=== PATIENT | female | born 1955 | race Caucasian/White ===

== ENCOUNTER 2018-04-28 06:47 | Inpatient (IN) | payer OTHER ==
[~2018-04-28] VITALS: Ht 165.1 cm; Wt 69.9 kg
--- NOTE | 2018-04-28 06:59 | ED SYNCOPE COMPLAINT ---
History of Present Illness General Chief Complaint: Syncope and Near-Syncope Stated Complaint: DIZZINESS/?SYNCOPAL (FROM OR) Source: patient Exam Limitations: no limitations Vital Signs & Intake/Output Vital Signs & Intake/Output Vital Signs Date Time Temp Pulse Resp B/P B/P Pulse O2 O2 Flow FiO2 Mean Ox Delivery Rate 04/28 0648 97.6 62 17 129/76 97 Room Air Allergies Coded Allergies: oxycodone (internal itch 05/24/17) Triage Note: PATIENT ARRIVES FROM THE OR WITH COMPLAINT OF ?SYNCOPAL EPISODE THIS AM AND NEAR-SYNCOPE IN THE OR WHILE HAVING COFFEE. PATIENT ARRIVES ALERT, ORIENTED, SPEECH CLEAR, DENIES CP/SOB. PATIENT STATES "THIS MORNING I HAD A WAVE OF FEELING HOT AND THE NEXT THING I KNEW THERE WAS COFFEE ALL OVER THE TABLE". AT BEDSIDE FOR EVAL. Triage Nurses Notes Reviewed? yes Timing: multiple episodes today Precipitating Factors: none Context: became dizzy/fainted Episode Description: SEE BELOW Loss of Consciousness: brief (seconds) Associated Symptoms: "FELT WARM" HPI: 62-year-old woman in prior good health under a medically supervised weight loss program, presents after 2 episodes of syncope. She states that this morning, she was at her breakfast table drinking coffee and reading when suddenly she felt a warm negrete through her body. She spilled her coffee and a workup dazed a few moments later. She collected herself. She went to work. While she was with her colleagues sitting, she suddenly became lightheaded. Her colic stated that, "she became pale all over." She did not lose consciousness the second moment, but felt like she might. She describes very mild palpitations, but no shortness of breath chest pain headache focal weakness. She states that she has been eating and drinking normally without increased dietary stimulants. She has a protein shake each morning. She is otherwise well. (Ramesh RODRIGUEZ,Shiraz Sheehan) Reconcile Medications Calcium Carbonate/Vitamin D3 (Os-Sean 500+D3 Caplet) 500 MG-200 TABLET 1 TAB PO DAILY VITAMIN SUPPORT (Reported) Multivitamin (Daily Value) 1 EACH TABLET 1 TAB PO DAILY VITAMIN SUPPORT ( Reported) (Sylvester Arguello DO) Past History Travel History Traveled to [place] past 21 day No Medical History Any Pertinent Medical History? see below for history Neurological: NONE EENT: NONE Cardiovascular: pleurisy Respiratory: NONE Gastrointestinal: NONE Hepatic: NONE Renal: NONE Musculoskeletal: NONE Psychiatric: NONE Endocrine: NONE Blood Disorders: NONE Cancer(s): NONE SALES CLERK SUPERVISOR/Reproductive: NONE Tetanus Vaccine: 08/19/12 Surgical History Surgical History: meniscus repair Psychosocial History What is your primary language Setswana Family History Hx Contributory? No (Shiraz Chandler MD) Medical History Any Pertinent Medical History? none Surgical History Surgical History: non-contributory Family History Hx Contributory? No (Sylvester Arguello DO) Review of Systems Review of Systems Constitutional: Denies: see HPI. (Shiraz Chandler MD) Review of Systems Constitutional: Reports: see HPI. EENTM: Reports: no symptoms. Respiratory: Reports: no symptoms. Cardiovascular: Reports: see HPI, palpitations, syncope. Denies: chest pain. GI: Reports: no symptoms. Genitourinary: Reports: no symptoms. Musculoskeletal: Reports: no symptoms. Skin: Reports: no symptoms. Neurological/Psychological: Reports: no symptoms. All Other Systems: Reviewed and Negative (Sylvester Arguello DO) Physical Exam Physical Exam Cranial Nerves: normal hearing, normal speech, PERRL Comments: Review of Systems - except as otherwise noted in HPI Review of Systems Constitutional:no symptoms. EENTM:no symptoms. Respiratory:no symptoms. Cardiovascular:no symptoms. GI:no symptoms. Genitourinary:no symptoms. Musculoskeletal:no symptoms. Skin:no symptoms. Neurological/Psychological:no symptoms. Hematologic/Endocrine:no symptoms. Immunologic/Allergic:no symptoms. All Other Systems: Reviewed and Negative Physical Exam Physical Exam General Appearance: well developed/nourished, no apparent distress Head: atraumatic, normal appearance Eyes: Bilateral: normal appearance. Ears, Nose, Throat: normal pharynx, normal ENT inspection Neck: normal inspection, supple, full range of motion Respiratory: normal breath sounds, chest non-tender, no respiratory distress, quiet respiration, lungs clear Cardiovascular: regular rate/rhythm Gastrointestinal: normal bowel sounds, soft, non-tender, no organomegaly Back: normal inspection, normal range of motion Extremities: normal inspection, normal capillary refill, normal range of motion, no edema Neurologic/Psych: no motor/sensory deficits, awake, alert, oriented x 3 Skin: intact, normal color, warm/dry Core Measures ACS in differential dx? No CVA/TIA Diagnosis: No Sepsis Present: No Sepsis Focused Exam Completed? No (Shiraz Chandler MD) Physical Exam Cranial Nerves: normal hearing, normal speech, PERRL Core Measures ACS in differential dx? Yes CVA/TIA Diagnosis: Yes NIH Stroke Scale NIH Stroke Scale Response Value Level of Consciousness alert 0 LOC Questions answers both correctly 0 LOC Commands obeys both correctly 0 Best Gaze normal 0 Visual [place] no visual loss 0 Facial Paresis normal 0 Motor Arm - Left no drift 0 Motor Arm - Right no drift 0 Motor Leg - Left no drift 0 Motor Leg - Right no drift 0 Limb Ataxia no ataxia 0 Sensory normal 0 Best Language no aphasia 0 Dysarthria normal articulation 0 Extinction and Inattention no neglect 0 Total 0 Sepsis Present: No Sepsis Focused Exam Completed? No (Sylvester Arguello DO) Progress Differential Diagnosis: vasovagal episode vs orthostatics vs other. Plan of Care: labs/ekg... pt signed out to dr. arguello at 7am, Hand-Off Endorsed To: Sylvester Arguello DO Endorsed Time: 0700 Pending: EKG, labs, Xray (Ramesh RODRIGUEZ,Shiraz Sheehan) Differential Diagnosis: AMI, orthostatic syncope, pericardial tamponade, pulmonary embolus, sick sinus syndrome, TIA/CVA, vasodepressor syncope, ventricular tach/fib, vasovagal episode vs orthostatics vs other. Initial ED EKG: NSR, rhythm, rate, no ST T wave changes Comments: Dr. Chandler placed orders for the patient prior to shift change for advanced triage. Laboratory studies, chest x-ray, and ECG are as documented. However, during my encounter with the patient while interviewing her she experienced another episode, and her heart rate correspondingly dropped to 35. This was self-limited and resolved spontaneously, with corresponding resolution of her symptoms. Diagnosis of symptomatic bradycardia was made and the patient was hospitalized with cardiology involvement for definitive workup and intervention. CXR FINDINGS: Cardiac leads overlie the chest. There is no focal consolidative disease, pleural effusion, or pneumothorax. The cardiac silhouette and upper mediastinal contours are normal. No acute osseous finding. IMPRESSION: Unremarkable chest radiograph. No consolidative disease or effusion. (Sylvester Arguello DO) Departure Departure Disposition: STILL A PATIENT Condition: Stable Referrals: Adalberto RODRIGUEZ,Brisa (PCP/Family) Departure Forms: Customer Survey General Discharge Information (Ramesh RODRIGUEZ,Shiraz Sheehan) Departure Time of Disposition: 757 Clinical Impression Primary Impression: Symptomatic sinus bradycardia Secondary Impressions: Syncope Qualifiers: Syncope type: unspecified Qualified Code: R55 - Syncope and collapse Admission Note Spoke With: Robina RODRIGUEZ,Alley Pabon Documentation of Exam: Documentation of any treatments & extenuating circumstances including Concerns Regarding Discharge (functional status, medication knowledge or non-compliance, living conditions, etc.) that warrant an admission rather than observation: Patient presents with syncope and was witnessed by me personally to have had a significant bradycardic episode into the mid 30s with corresponding symptomatology. This may warrant an unstable cardiac dysrhythmia and could be life-threatening thus I feel that hospitalization for definitive management with cardiology is warranted. Hemodynamically stable for the remainder of the ED course. (Sylvester Arguello DO) Critical Care Note Critical Care Note Critical Care Time: 30-74 min Comments: Critical care time spent > 30 inutes. The patient was suffering from a critical illness that acutely impairs one or more vital organ systems and there is a high probability of imminent or life threatening deterioration in the patient's condition. During this time I was personally involved in activities including monitoring for dysrhythmias, consulting multiple specialists, and decision making of high complexity to assess, manipulate, and support vital organ system failure (in this case, symptomatic bradycardia, or to prevent further life threatening deterioration of the patient's condition. The failure to initiate these interventions on an urgent basis would likely result in sudden, clinically significant or life threatening deterioration in the patient's condition. (Sylvester Arguello DO)
[2018-04-28 07:18] LABS: ABSOLUTE BASOPHIL COUNT 0 /CUMM (0.0-0.2); ABSOLUTE EOSINOPHIL COUNT 0.1 /CUMM (0.0-0.7); ABSOLUTE GRANULOCYTE CT 2.8 /CUMM (1.4-6.5); ABSOLUTE LYMPH COUNT 0.8 /CUMM (1.2-3.4); ABSOLUTE MONOCYTE COUNT 0.3 /CUMM (0.10-0.60); BASOPHIL % 0.8 % (0.0-2.0); EOSINOPHIL % 1.4 % (0-5); HEMATOCRIT 40.2 % (37-47); MEAN CORPUSCULAR HGB 31.1 PG (27.0-31.0); MEAN CORPUSCULAR HGB CONC 33.7 G/DL (33.0-37.0); MEAN CORPUSCULAR VOLUME 92.2 FL (81.0-99.0); MEAN PLATELET VOLUME 10.1 FL (7.4-10.4); PLATELET COUNT 186 /CUMM (130-400); RBC DISTRIBUTION WIDTH 13.3 % (11.5-14.5); RED BLOOD CELL CT 4.36 /CUMM (4.20-5.40); WHITE BLOOD CELL COUNT 4.1 /CUMM (4.8-10.8)
--- NOTE | 2018-04-28 07:43 | RADIOLOGY REPORT ---
EXAMINATION: XR PORTABLE CHEST CLINICAL INFORMATION: Chest pain. COMPARISON: Chest radiograph 05/01/2016. TECHNIQUE: Portable frontal view of the chest was obtained. FINDINGS: Cardiac leads overlie the chest. There is no focal consolidative disease, pleural effusion, or pneumothorax. The cardiac silhouette and upper mediastinal contours are normal. No acute osseous finding. IMPRESSION: Unremarkable chest radiograph. No consolidative disease or effusion.
[2018-04-28] MEDS ORDERED: DAILY VALUE1 EACH PO (08:45)
[2018-04-28] MEDS ORDERED: OS-CAL 500+D31 EAC1 PO (08:46)
[2018-04-28 11:19] VITALS: BP 108/76
--- NOTE | 2018-04-28 11:33 | Cons- Cardiology ---
Abdirahman Pruitt MD 04/28/18 1133: General Information and HPI Consulting Request Date of Consult: 04/28/18 Requested By: Joanie Law MD Reason for Consult: Syncope, bradycardia History of Present Illness: The patient is a 62-year-old female with no cardiac history who is admitted after several recent episodes of syncope/presyncope. She was sitting at her kitchen table at home this morning when she developed a sensation of warmth and dizziness. She is unsure whether she lost consciousness, however she spilled her coffee. 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 She presented to the emergency room. In the emergency department she was noted to have the sensation of warmth and presyncope with associated brief episode of bradycardia with heart rate of 35. She does not have any significant cardiac history. She had palpitations years ago which have not recurred. She has recently been participating in the [facility] program. She is taking a weight loss supplement, however she is unsure of the ingredients. No chest pain. No recent palpitations. No orthopnea. No shortness of breath. She was recently diagnosed with thyroid nodules. Workup showed that her thyroid appeared to be functioning normally Allergies/Medications Allergies: Coded Allergies: oxycodone (internal itch 05/24/17) Home Med List: Calcium Carbonate/Vitamin D3 (Os-Sean 500+D3 Caplet) 500 MG-200 TABLET 1 TAB PO DAILY VITAMIN SUPPORT (Reported) Multivitamin (Daily Value) 1 EACH TABLET 1 TAB PO DAILY VITAMIN SUPPORT ( Reported) Current Medications: Current Medications Sig/Dashawn Start time Last Medication Dose Route Stop Time Status Admin Acetaminophen 650 MG Q8P PRN 04/28 1045 AC PO Acetaminophen 325 MG Q6P PRN 04/28 1045 AC PO Atropine Sulfate 0.5 MG ONCE PRN 04/28 1045 AC IV Ondansetron HCl 0 .STK-MED ONE 04/28 821 DC .ROUTE Ondansetron HCl 4 MG ONCE ONE 04/28 0815 DC / IV 04/28 0816 0821 Sodium Chloride 1,000 ML BOLUS ONE 04/28 0815 DC / IV 04/28 0914 0821 Sodium Chloride 1,000 ML BOLUS ONE 04/28 0715 DC / IV 04/28 0814 0712 Review of Systems Review of Systems: No fever. No chills. No melena. No hemoptysis. No cough. All other systems were reviewed, and were noted to be negative. 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 Home Smoking Status: Never Smoked ETOH Use: denies use Illicit Drug Use: denies illicit drug use Exam & Diagnostic Data Vital Signs and I&O Vital Signs Date Time Temp Pulse Resp B/P B/P Pulse O2 O2 Flow FiO2 Mean Ox Delivery Rate 04/28 1119 99.1 62 18 108/76 96 Room Air 04/28 0947 97.8 70 18 111/57 04/28 0648 97.6 62 17 129/76 97 Room Air Intake & Output 04/28 1600 04/28 0800 04/28 0000 04/27 1600 04/27 0800 04/27 0000 Intake Total 2000 Output Total Balance 2000 Intake, IV 2000 Patient 144 lb 144 lb Weight Weight Reported by Patient Measurement Method Physical Exam: Gen: The patient is in no acute distress HEENT: Normal nose, ears, and oropharynx. Pupils equal bilaterally. Conjunctiva normal. Neck: Supple with no JVD, no masses, and no thyromegaly Lungs: Clear to auscultation with normal respiratory effort Heart: RRR, S1, S2, no murmurs. No peripheral edema, 2+ pulses in the lower extremities bilaterally Abdomen: Soft, nontender, no masses. No hepatomegaly. No splenomegaly Extremities: No clubbing or cyanosis. Normal muscle strength in the upper and lower extremities Skin: Normal skin turgor with no skin ulcers or lesions noted. Neuro: Cranial nerves intact. Sensation intact Psych: Alert and oriented x 3 with appropriate affect Labs/Magdi Results: Laboratory Tests 04/28 0706 Chemistry Sodium (137 - 145 mmol/L) 142 Potassium (3.5 - 5.1 mmol/L) 4.1 Chloride (98 - 107 mmol/L) 102 Carbon Dioxide (22 - 30 mmol/L) 32 H Anion Gap (5 - 16) 8 BUN (7 - 17 mg/dL) 31 H Creatinine (0.5 - 1.0 mg/dL) 0.8 Estimated GFR (>60 ml/min) > 60 BUN/Creatinine Ratio (7 - 25 %) 38.8 H Glucose (65 - 99 mg/dL) 113 H Calcium (8.4 - 10.2 mg/dL) 9.8 Total Bilirubin (0.2 - 1.3 mg/dL) 0.3 Direct Bilirubin (< 0.4 mg/dL) 0 AST (14 - 36 U/L) 26 ALT (9 - 52 U/L) 35 Alkaline Phosphatase (<127 U/L) 83 Troponin I (< 0.11 ng/ml) < 0.01 Total Protein (6.3 - 8.2 g/dL) 6.8 Albumin (3.5 - 5.0 g/dL) 4.0 Amylase (30 - 110 U/L) 68 Lipase (23 - 300 U/L) 152 TSH (0.270 - 4.200 uIU/mL) 1.730 Hematology CBC w Diff NO MAN DIFF REQ WBC (4.8 - 10.8 /CUMM) 4.1 L RBC (4.20 - 5.40 /CUMM) 4.36 Hgb (12.0 - 16.0 G/DL) 13.6 Hct (37 - 47 %) 40.2 MCV (81.0 - 99.0 FL) 92.2 MCH (27.0 - 31.0 PG) 31.1 H MCHC (33.0 - 37.0 G/DL) 33.7 RDW (11.5 - 14.5 %) 13.3 Plt Count (130 - 400 /CUMM) 186 MPV (7.4 - 10.4 FL) 10.1 Gran % (42.2 - 75.2 %) 69.0 Lymphocytes % (20.5 - 51.1 %) 20.6 Monocytes % (1.7 - 9.3 %) 8.2 Eosinophils % (0 - 5 %) 1.4 Basophils % (0.0 - 2.0 %) 0.8 Absolute Granulocytes (1.4 - 6.5 /CUMM) 2.8 Absolute Lymphocytes (1.2 - 3.4 /CUMM) 0.8 L Absolute Monocytes (0.10 - 0.60 /CUMM) 0.3 Absolute Eosinophils (0.0 - 0.7 /CUMM) 0.1 Absolute Basophils (0.0 - 0.2 /CUMM) 0 Diagnostic Data EKG Results EKG tracing is independently reviewed, and reveals normal sinus rhythm at 54, normal EKG CXR Results Unremarkable chest radiograph. No consolidative disease or effusion. Assessment/Plan Assessment/Plan 62-year-old female presenting with recurrent episodes of lightheadedness and presyncope versus syncope. During ONE of the presyncopal episodes, she was noted to be transiently bradycardic with heart rate of 35. She is taking an unknown weight loss supplement. She was recently diagnosed with thyroid nodules Recommendations: * Monitor on telemetry for further arrhythmias or symptoms * Check orthostatic * Echocardiogram * The patient will discontinue the weight loss supplement, and she will have her family members bring it to the hospital to determine the ingredient * If symptomatic bradycardia is documented, then pacemaker placement may need to be considered. Consult Acknowledgment - Thank you for your consult request. Barrera dAams 04/28/18 1259: Assessment/Plan Consult Acknowledgment - Thank you for your consult request.
--- NOTE | 2018-04-28 11:46 | History & Physical ---
Barrera Adams 04/28/18 1146: General Information and HPI MD Statement: I have seen and personally examined LUDIVINA OMER and documented this H&P. The patient is a 62 year old F who presented with a patient stated chief complaint of [pre-syncope]. Source of Information: patient Exam Limitations: no limitations History of Present Illness: Ms. Omer, is a pleasant 62-year-old female. She has no known significant past medical history. She presents emergency department today with complaints of lightheadedness and dizziness. She states that this morning at approximately 5: 30 AM while drinking her coffee, she had some lightheadedness and dizziness, associated with a feeling of warmth. She then woke up at her kitchen table, with her coffee spilled on herself. She does not think she was unconscious for a while as the coffee was quite hot. She thought nothing of it and came to work. Again around 0615 at work, she had a similar episode, and once again in the ER while being interviewed by the ER attending. At that moment, she was noted to drop her HR to the 30s. The episode was short lived, and the HR came up without intervention. She denied any previous similar episodes. She states that she previously saw Dr. Shepard 3 or 4 years ago for complaints of palpitation. She saw him one time. She is unsure whether she has had a Holter monitor in the past however she states that she did not have any other symptoms and has not seen him since. Additionally, she states that around 1-1/2 weeks ago she had similar symptoms while at work, and also had nausea, vomiting and diarrhea. She states coworkers had similar complaints, and she suspected her symptoms were secondary to an infectious etiology. Additionally, of note, she has been on a weight loss regimen, "Medi-weight loss program". She had been on Fenfluramine/phentermine, however discontinued this approximately one month ago. She has lost 15 pounds over the last 3 months with diet and exercise. She also states that she is on a weight loss supplementation however is unsure of the name and/or active ingredient. She denies any decreased by mouth intake. She denies any symptoms with activity. She states yesterday she worked out for an hour with no complaints of lightheadedness, dizziness, dyspnea, chest pain, palpitations or other presyncopal symptoms. She denies any lower extremity edema. She denies any recent travel. She denies any recent immobilization. Additionally of note, she had a lower extremity DVT, when she was 9 years old after trauma and immobilization. Her social history is significant for previous alcohol and marijuana abuse. She currently does not use alcohol, tobacco, marijuana or illicit substances. She is employed as an OR nurse at [employer]. She denies any history of sudden cardiac . Her family history is significant for sick sinus syndrome in her maternal grandmother at 50 years old, status post permanent pacemaker placement. Sick sinus syndrome with pacemaker placement in her paternal half-sister at 48 years old and colorectal cancer in her mother who at 76. Of note, a CT scan of the cervical spine in April 2017 revealed multiple heterogeneous, predominantly low density nodules in the bilateral lobes of the thyroid gland. Vitals in the emergency department, blood pressure 129/76, pulse ox 97% on room air, respiratory rate 17, pulse rate 62, temperature 97.6. Her laboratory evaluation was unremarkable. Her EKG in the ER showed: Sinus bradycardia at 54bpm with normal axis approx 0 degrees. HI 168ms, QTc 440. No 1st degree or other heart block noted. Some inferior T-wave flattening in III, aVF. Good R-wave progression. Overall, no significant change since previous investigation. Doctors Ms. Omer follows with: PCP: Dr. HACKETT CARDIO: Dr. SHEPARD FOR PALPITATIONS ELECTRICAL CONTROL ASSEMBLER: Dr. JENNY SHANKAR: COLONOSCOPY Allergies/Medications Allergies: Coded Allergies: oxycodone (internal itch 05/24/17) Home Med list Calcium Carbonate/Vitamin D3 (Os-Sean 500+D3 Caplet) 500 MG-200 TABLET 1 TAB PO DAILY VITAMIN SUPPORT (Reported) Multivitamin (Daily Value) 1 EACH TABLET 1 TAB PO DAILY VITAMIN SUPPORT ( Reported) Compliance With Home Meds: GOOD Past History Travel History Traveled to [place] past 21 day No Medical History Blood Transfusion Hx: No Neurological: NONE EENT: NONE Cardiovascular: pleurisy Respiratory: NONE Gastrointestinal: NONE Hepatic: NONE Renal: NONE Musculoskeletal: NONE Psychiatric: NONE Endocrine: NONE Blood Disorders: NONE Cancer(s): NONE ELECTRICAL CONTROL ASSEMBLER/Reproductive: NONE History of MRSA: No History of VRE: No History of CDIFF: No Isolation History: Standard Tetanus Vaccine: 08/19/12 Surgical History Surgical History: non-contributory Past Family/Social History Psychosocial History Where do you live? Home Services at Home: None Smoking Status: Never Smoked ETOH Use: former use Illicit Drug Use: denies illicit drug use Functional Ability ADLs Independent: dressing, eating, toileting, bathing. Ambulation: independent IADLs Independent: shopping, housework, finances, food prep, telephone, transportation , medication admin. Sexual History Sexually Active No Employment History Employment OR nurse Review of Systems Review of Systems Constitutional: Reports: see HPI. Exam & Diagnostic Data Last 24 Hrs of Vital Signs/I&O Vital Signs Date Time Temp Pulse Resp B/P B/P Pulse O2 O2 Flow FiO2 Mean Ox Delivery Rate 04/28 1119 99.1 62 18 108/76 96 Room Air 04/28 0947 97.8 70 18 111/57 04/28 0648 97.6 62 17 129/76 97 Room Air Intake & Output 04/28 1600 04/28 0800 04/28 0000 Intake Total 2000 Output Total Balance 2000 Intake, IV 2000 Patient 65.317 kg 65.317 kg Weight Weight Reported by Patient Measurement Method Physical Exam General Appearance Alert, Oriented X3, Cooperative, No Acute Distress Skin No Significant Lesion Skin Temp/Moisture Exam: Warm/Dry HEENT Atraumatic, EOMI Neck +2 Carotid Pulse wo Bruit, with Right Carotid artery massage, the patient becomes bradycardic to the high 40s, without symptoms Cardiovascular Regular Rate, Normal S1, Normal S2 Lungs Clear to Auscultation, Normal Air Movement Abdomen Normal Bowel Sounds, Soft, No Tenderness Neurological Normal Speech, Strength at 5/5 X4 Ext, Normal Tone, Cranial Nerves 3-12 NL Extremities No Tenderness/Swelling, negative hommens test. no calf swelling or tenderness Last 24 Hrs of Labs/Magdi: Laboratory Tests 04/28/18 0706: Anion Gap 8, Estimated GFR > 60, BUN/Creatinine Ratio 38.8 H, Glucose 113 H, Calcium 9.8, Total Bilirubin 0.3, Direct Bilirubin 0, AST 26, ALT 35, Alkaline Phosphatase 83, Troponin I < 0.01, Total Protein 6.8, Albumin 4.0, Amylase 68, Lipase 152, TSH 1.730, CBC w Diff NO MAN DIFF REQ, RBC 4.36, MCV 92.2, MCH 31.1 H, MCHC 33.7, RDW 13.3, MPV 10.1, Gran % 69.0, Lymphocytes % 20.6, Monocytes % 8.2, Eosinophils % 1.4, Basophils % 0.8, Absolute Granulocytes 2.8, Absolute Lymphocytes 0.8 L, Absolute Monocytes 0.3, Absolute Eosinophils 0.1, Absolute Basophils 0 Diagnostic Data EKG Results Sinus bradycardia at 54bpm with normal axis approx 0 degrees. HI 168ms, QTc 440. No 1st degree or other heart block noted. Some inferior T-wave flattening in III, aVF. Good R-wave progression. Overall, no significant change since previous investigation. CXR Results FINDINGS: Cardiac leads overlie the chest. There is no focal consolidative disease, pleural effusion, or pneumothorax. The cardiac silhouette and upper mediastinal contours are normal. No acute osseous finding. IMPRESSION: Unremarkable chest radiograph. No consolidative disease or effusion. Assessment/Plan Assessment: Ms. Omer, is a pleasant 62-year-old female. She has no known significant past medical history, who presents for pre-syncopal episodes Problem list/assessment and plan Syncope with bradycardia * Query sinus bradycardia versus sick sinus syndrome. The patient exercises regularly, and states she does not have any symptoms with significant exercise, which implies that her heart rate does go up appropriately with stress. * The fact that we do have documented bradycardia coinciding with symptomology, the patient may have symptomatic bradycardia. * We will admit to the telemetry service and monitor her heart rate and for any dysrhythmias. * We will rule out any thyroid dysfunction in light of her thyroid nodules with TSH. If she does have hypothyroidism, this may be contributing to her bradycardia. * Additionally, she states that she is on a weight loss supplement. This must be further investigated as it may be the cause of her bradycardia. * No infection suspected. * We will rule her out for ACS and obtain an echocardiogram to determine if she has any structural abnormalities. * If not external etiology is identified, she may require EP investigation/ intervention with PPM placement. FC ALPS for DVT ppx Regular diet for now. NPO if pt she develops bradycardia again and requires PPM placement. Pain path as ordered. As Ranked By This Provider Problem List: 1. Symptomatic sinus bradycardia Core Measures/Misc (08/11) Acute Coronary Syndrome ACS Diagnosis: No Congestive Heart Failure Congestive Heart Failure Diagnosis No Cerebrovascular Accident CVA/TIA Diagnosis: No VTE (View Protocol) VTE Risk Factors Age>40 No Mechanical VTE Prophylaxis d/t N/A MechProphylax Ordered No VTE Pharm Prophylaxis d/t Surgical Contraindication Sepsis (View protocol) Sepsis Present: No If YES complete Sepsis Event Note If YES complete Sepsis Event Note Joanie Law 04/28/18 1309: Core Measures/Misc (08/11) Sepsis (View protocol) If YES complete Sepsis Event Note If YES complete Sepsis Event Note Attending MD Review Statement Attending Statement Attending MD Statement: examined this patient, discuss w/resident/PA/ELECTRIC SCREW DRIVER OPERATOR, agreed w/resident/PA/ELECTRIC SCREW DRIVER OPERATOR, discussed with family, reviewed EMR data (avail), discussed with nursing, discussed with case mgmt, reviewed images, amended to note Attending Assessment/Plan: 62 o/f with syncopal events at home found ot have sinus bradycardia HR 54, cardiology consulted and admitted to telemetry monitoring. Serial cardiac enzymes and ECHO. Thyroid function tests if not done recently.
[2018-04-28 15:22] VITALS: BP 112/78
[2018-04-28 22:00] VITALS: BP 110/76
[2018-04-29 06:48] VITALS: BP 110/56
[2018-04-29 07:51] LABS: ABSOLUTE BASOPHIL COUNT 0 /CUMM (0.0-0.2); ABSOLUTE EOSINOPHIL COUNT 0.1 /CUMM (0.0-0.7); ABSOLUTE GRANULOCYTE CT 2.2 /CUMM (1.4-6.5); ABSOLUTE LYMPH COUNT 1.2 /CUMM (1.2-3.4); ABSOLUTE MONOCYTE COUNT 0.3 /CUMM (0.10-0.60); BASOPHIL % 0.8 % (0.0-2.0); EOSINOPHIL % 1.4 % (0-5); GRANULOCYTE % 57.8 % (42.2-75.2); MEAN CORPUSCULAR HGB 31.4 PG (27.0-31.0); MEAN CORPUSCULAR HGB CONC 34.2 G/DL (33.0-37.0); MEAN CORPUSCULAR VOLUME 91.8 FL (81.0-99.0); MEAN PLATELET VOLUME 10.6 FL (7.4-10.4); PLATELET COUNT 183 /CUMM (130-400); RBC DISTRIBUTION WIDTH 13.5 % (11.5-14.5); RED BLOOD CELL CT 4.13 /CUMM (4.20-5.40); WHITE BLOOD CELL COUNT 3.9 /CUMM (4.8-10.8)
--- NOTE | 2018-04-29 10:11 | ECHOCARDIOGRAM REPORT ---
NEGRALUDIVINA Age: 62 : 1955 Gender: F Exam Date: 04/28/2018 16:55 Exam Location: 1 [address] Ht (in): 65 Wt (lb): 144 BSA: 1.74 BP: 112 / 78 Ordering Physician: Barrera Adams MD Referring Physician: Nikhil Swanson MD Technologist: Corrine Munroe [facility] Room Number: [id number] Indications: CARDIOMYOPATHY Rhythm: Sinus Technical Quality: Good FINDINGS Left Ventricle Normal size left ventricle. Normal left ventricular wall thickness. Normal left ventricular ejection fraction visually estimated at > 60%. Normal left ventricular wall motion. Normal left ventricular diastolic filling pattern for age. Right Ventricle Normal right ventricular size and function. Right Atrium Normal right atrial size. Left Atrium Normal left atrial size. Mitral Valve Mild mitral annular calcification. Mitral valve thickened. Mild mitral regurgitation. Aortic Valve Aortic valve mildly thickened. No aortic stenosis. Mild aortic regurgitation. Tricuspid Valve Tricuspid valve not well visualized, grossly normal. Mild tricuspid regurgitation. No evidence of pulmonary hypertension. Pulmonic Valve Pulmonic valve not well visualized, grossly normal. Pericardium No pericardial effusion. Great Vessels Normal size aortic root. CONCLUSIONS Normal left ventricular ejection fraction visually estimated at > 60%. Mild mitral regurgitation. Mild aortic regurgitation. Mild tricuspid regurgitation. Normal size left ventricle. Normal left ventricular wall thickness. Normal left ventricular ejection fraction visually estimated at > 60%. Mild mitral regurgitation. Mild aortic regurgitation. Mild tricuspid regurgitation. Abdirahman Pruitt M.D. (Electronically Signed) Final Date: 29 April 2018 10:10 MEASUREMENTS (Male / Female) Normal Values 2D ECHO LV Diastolic Diameter PLAX 4.8 cm 4.2 - 5.9 / 3.9 - 5.3 cm LV Systolic Diameter PLAX 2.4 cm 2.1 - 4.0 cm LV Fractional Shortening PLAX 50.0 % 25 - 46 % LV Ejection Fraction 2D Teich 81.3 % IVS Diastolic Thickness 0.6 cm LVPW Diastolic Thickness 0.7 cm LV Relative Wall Thickness 0.3 RV Internal Dim ED PLAX 2.4 cm 1.9 - 3.8 cm LVOT Diameter 1.8 cm Aortic Root Diameter 2.9 cm LA Systolic Diameter LX 3.0 cm 3.0 - 4.0 / 2.7 - 3.8 cm LA Volume 32.0 cm 18 - 58 / 22 - 52 cm DOPPLER AV Peak Velocity 162.0 cm/s AV Peak Gradient 10.5 mmHg AV Mean Velocity 106.0 cm/s AV Mean Gradient 5.0 mmHg AV Velocity Time Integral 36.1 cm LVOT Peak Velocity 139.0 cm/s LVOT Peak Gradient 7.7 mmHg LVOT Mean Velocity 92.2 cm/s LVOT Mean Gradient 4.0 mmHg LVOT Velocity Time Integral 30.2 cm LVOT Stroke Volume 76.8 cm AV Area Cont Eq vti 2.1 cm AV Area Cont Eq pk 2.2 cm MV Peak Velocity 108.0 cm/s MV Peak Gradient 4.7 mmHg MV Mean Velocity 62.3 cm/s MV Mean Gradient 2.0 mmHg Mitral E Point Velocity 95.8 cm/s Mitral A Point Velocity 78.0 cm/s Mitral E to A Ratio 1.2 MV PHT Velocity 117.0 cm/s MV Deceleration Rawlins 359.0 cm/s MV Pressure Half Time 97.8 ms MV Area PHT 2.3 cm MV Deceleration Time 194.0 ms TR Peak Velocity 267.0 cm/s TR Peak Gradient 28.5 mmHg Right Atrial Pressure 5.0 mmHg Pulmonary Artery Systolic Pressu 33.5 mmHg Right Ventricular Systolic Press 33.5 mmHg PV Peak Velocity 94.0 cm/s PV Peak Gradient 3.5 mmHg PV Mean Velocity 67.4 cm/s PV Mean Gradient 2.0 mmHg PV Velocity Time Integral 24.7 cm LV E' Lateral Velocity 14.6 cm/s Mitral E to LV E' Lateral Ratio 6.6 LV E' Septal Velocity 9.8 cm/s Mitral E to LV E' Septal Ratio 9.7
--- NOTE | 2018-04-29 10:47 | PN- Cardiology ---
Subjective Subjective: Feeling better. No further episodes of lightheadedness, dizziness, presyncope, or syncope. No chest pain. No palpitations. No diaphoresis. No nausea or vomiting. She is noted to have multiple episodes of sinus bradycardia on telemetry. Objective Vital Signs and I&Os Vital Signs Date Time Temp Pulse Resp B/P B/P Pulse O2 O2 Flow FiO2 Mean Ox Delivery Rate 04/29 0648 98.1 61 16 110/56 96 Room Air 04/28 2255 Room Air 04/28 2200 99.1 53 16 110/76 95 06/04 1522 99.3 57 19 112/78 94 / 1119 99.1 62 18 108/76 96 Room Air Intake & Output 04/29 1600 04/29 0800 04/29 0000 04/28 1600 04/28 0800 04/28 0000 Intake Total 970 451 4854 Output Total Balance 998 937 1133 Intake, IV 2000 Intake, Oral 440 440 300 Patient 150 lb 144 lb 144 lb Weight Weight Reported by Patient Measurement Method Physical Exam: Gen: NAD HEENT: normal Lungs: clear to auscultation, normal resp. effort Heart: RRR, S1, S2, no murmurs Abdomen: Soft, nontender, no masses Extremities: No clubbing, cyanosis, or edema. Neuro: Alert and oriented x 3, cranial nerves intact Current Medications: Current Medications Sig/Dashawn Start time Last Medication Dose Route Stop Time Status Admin Acetaminophen 650 MG Q8P PRN 04/28 1045 AC / PO 1254 Acetaminophen 325 MG Q6P PRN 04/28 1045 AC PO Atropine Sulfate 0.5 MG ONCE PRN 04/28 1045 AC IV Results Last 48 Hrs of Labs/Mics: Laboratory Tests 04/29/18 0620: Anion Gap 8, Estimated GFR > 60, BUN/Creatinine Ratio 24.3, CBC w Diff NO MAN DIFF REQ, RBC 4.13 L, MCV 91.8, MCH 31.4 H, MCHC 34.2, RDW 13.5, MPV 10.6 H, Gran % 57.8, Lymphocytes % 31.7, Monocytes % 8.3, Eosinophils % 1.4, Basophils % 0.8, Absolute Granulocytes 2.2, Absolute Lymphocytes 1.2, Absolute Monocytes 0.3 , Absolute Eosinophils 0.1, Absolute Basophils 0 04/28/18 1310: Troponin I < 0.01 04/28/18 0706: Anion Gap 8, Estimated GFR > 60, BUN/Creatinine Ratio 38.8 H, Glucose 113 H, Calcium 9.8, Total Bilirubin 0.3, Direct Bilirubin 0, AST 26, ALT 35, Alkaline Phosphatase 83, Troponin I < 0.01, Total Protein 6.8, Albumin 4.0, Amylase 68, Lipase 152, TSH 1.730, CBC w Diff NO MAN DIFF REQ, RBC 4.36, MCV 92.2, MCH 31.1 H, MCHC 33.7, RDW 13.3, MPV 10.1, Gran % 69.0, Lymphocytes % 20.6, Monocytes % 8.2, Eosinophils % 1.4, Basophils % 0.8, Absolute Granulocytes 2.8, Absolute Lymphocytes 0.8 L, Absolute Monocytes 0.3, Absolute Eosinophils 0.1, Absolute Basophils 0 Recent Imaging Studies: Echocardiogram: Normal left ventricular ejection fraction visually estimated at > 60%. Mild mitral regurgitation. Mild aortic regurgitation. Mild tricuspid regurgitation. Normal size left ventricle. Normal left ventricular wall thickness. Normal left ventricular ejection fraction visually estimated at > 60%. Mild mitral regurgitation. Mild aortic regurgitation. Mild tricuspid regurgitation. Assessment/Plan Assessment/Plan Assessment: 1. Sinus bradycardia 2. Syncope, possibly secondary to bradycardia 3. Multiple episodes of lightheadedness 4. Structurally normal heart on echocardiogram Plan: * Continue to monitor on telemetry * Ambulate * N.p.o. after midnight * Possible permanent pacemaker placement with Dr. Goins if evidence of symptomatic bradycardia Continue telemetry? Yes
--- NOTE | 2018-04-29 10:48 | PN- Housestaff ---
Cookie RODRIGUEZ,Isgail 04/29/18 1029: Subjective Follow-up For: Symptomatic bradycardia Subjective: Afebrile, hemodynamically, heart rate 40-70. She is laying in bed looks relaxed and comfortable, denies any current active complaints. Review of Systems Constitutional: Reports: no symptoms, see HPI. Objective Last 24 Hrs of Vital Signs/I&O Vital Signs Date Time Temp Pulse Resp B/P B/P Pulse O2 O2 Flow FiO2 Mean Ox Delivery Rate 04/29 0648 98.1 61 16 110/56 96 Room Air 04/28 2255 Room Air 04/28 2200 99.1 53 16 110/76 95 06/04 1522 99.3 57 19 112/78 94 /04 1119 99.1 62 18 108/76 96 Room Air Intake & Output 04/29 1600 04/29 0800 06 0000 Intake Total 440 440 Output Total Balance 440 440 Intake, Oral 440 440 Patient 68.209 kg Weight Physical Exam General Appearance: Alert, Oriented X3, Cooperative, No Acute Distress Skin: No Rashes HEENT: Atraumatic, PERRLA, EOMI, Mucous Membr. moist/pink Neck: No JVD Cardiovascular: Regular Rate, Normal S1, Normal S2, No Murmurs Lungs: Clear to Auscultation, Normal Air Movement Abdomen: Soft, No Tenderness Neurological: Normal Gait, Normal Speech Extremities: No Clubbing, No Cyanosis, No Edema Current Medications: Current Medications Sig/Dashawn Start time Last Medication Dose Route Stop Time Status Admin Acetaminophen 650 MG Q8P PRN 04/28 1045 AC / PO 1254 Acetaminophen 325 MG Q6P PRN 04/28 1045 AC PO Atropine Sulfate 0.5 MG ONCE PRN 04/28 1045 AC IV Last 24 Hrs of Lab/Magdi Results Last 24 Hrs of Labs/Mics: Laboratory Tests 04/29/18 0620: Anion Gap 8, Estimated GFR > 60, BUN/Creatinine Ratio 24.3, CBC w Diff NO MAN DIFF REQ, RBC 4.13 L, MCV 91.8, MCH 31.4 H, MCHC 34.2, RDW 13.5, MPV 10.6 H, Gran % 57.8, Lymphocytes % 31.7, Monocytes % 8.3, Eosinophils % 1.4, Basophils % 0.8, Absolute Granulocytes 2.2, Absolute Lymphocytes 1.2, Absolute Monocytes 0.3 , Absolute Eosinophils 0.1, Absolute Basophils 0 04/28/18 1310: Troponin I < 0.01 Assessment/Plan Assessment: 62-year-old female with no significant PMH who presented after syncopal episode. The patient reports multiple presyncopal episodes during the last month. She was found to be in sinus bradycardia while in the ED, and had documented multiple episodes of bradycardia on telemetry floor. She is hemodynamically stable. ACS was ruled out with serial EKG and troponin. TSH and electrolytes WNL. No sign of infection, CXR negative for acute pathology, and UA negative for UTI. Plan #Symptomatic bradycardia. All reversible causes of bradycardia was ruled out. The pt will be observed overnight on tele monitor. The decision for PPM placement will be taken tomorrow morning based on the monitor finding. Most likely she will require pacemaker placement. NPO FC DVT PPx with ALPS Problem List: 1. Syncope Pain Ratin Pain Location: NA Pain Goal: Remain pain free Pain Plan: See A&P Tomorrow's Labs & Rationales: CBC to follow WBCs Joanie Law 04/29/18 1046: Attending MD Review Statement Attending Statement Attending MD Statement: examined this patient, discuss w/resident/PA/TRAINING DEVELOPMENT MANAGER, agreed w/resident/PA/TRAINING DEVELOPMENT MANAGER, discussed with family, reviewed EMR data (avail), discussed with nursing, discussed with case mgmt, reviewed images, amended to note Attending Assessment/Plan: 62 o/f with syncope and sinus bradycardia is here in telemetry, no chest pain, no shortness of breath, no further symptoms. Patient overnight bradycardia with HR 40s. Avoid b blockers. Follow cardiology recommendations. Monitor in telemetry for further 24 hrs.
[2018-04-29 14:25] VITALS: BP 118/70
[2018-04-29 22:03] VITALS: BP 108/76
[2018-04-30 06:46] VITALS: BP 106/60
--- NOTE | 2018-04-30 07:55 | PN- Housestaff ---
Carrillo RODRIGUEZ,[facility] 04/30/18 0748: Subjective Follow-up For: Symptomatic bradycardia Tele-Events Since Last Visit: Lowest 52 bpm Subjective: Patient was seen and examined this morning, vital signs are stable, on monitor the lowest was 52 bpm, no overnight events. Patient denied any lightheadedness, nausea, vomiting, blurry vision. She is nothing by mouth for pacemaker placement this morning. Patient received a call from the OR for procedure time at 9:30 this morning. Orthostatic measurement negative Review of Systems Constitutional: Reports: see HPI. Objective Last 24 Hrs of Vital Signs/I&O Vital Signs Date Time Temp Pulse Resp B/P B/P Pulse O2 O2 Flow FiO2 Mean Ox Delivery Rate 04/30 0646 98.1 62 20 106/60 93 Room Air 04/29 2203 98.3 56 20 108/76 94 04/29 1425 98.0 58 18 118/70 97 Room Air Intake & Output 04/30 0800 06 0000 04/29 1600 Intake Total 100 100 400 Output Total 600 Balance 100 100 -200 Intake, Oral 100 100 400 Output, Urine 600 Patient 66.763 kg Weight Physical Exam General Appearance: Alert, Oriented X3, Cooperative, No Acute Distress Skin: No Rashes, No Breakdown, No Significant Lesion Skin Temp/Moisture Exam: Warm/Dry HEENT: Atraumatic, PERRLA, EOMI, Mucous Membr. moist/pink Neck: Supple Cardiovascular: Regular Rate, Normal S1, Normal S2, No Murmurs Lungs: Clear to Auscultation, Normal Air Movement Abdomen: Normal Bowel Sounds, Soft, No Tenderness Neurological: Normal Speech, Strength at 5/5 X4 Ext, Normal Tone, Sensation Intact, Cranial Nerves 3-12 NL Extremities: No Clubbing, No Cyanosis, No Edema, Normal Pulses Current Medications: Current Medications Sig/Dashawn Start time Last Medication Dose Route Stop Time Status Admin Acetaminophen 650 MG Q8P PRN 04/28 1045 AC 04/28 PO 1254 Acetaminophen 325 MG Q6P PRN 04/28 1045 AC PO Atropine Sulfate 0.5 MG ONCE PRN 04/28 1045 AC IV Last 24 Hrs of Lab/Magdi Results Last 24 Hrs of Labs/Mics: Laboratory Tests 04/29/18 1300: Urine Color YEL, Urine Clarity CLEAR, Urine pH 6.5, Ur Specific [place] 1.010, Urine Protein NEG, Urine Ketones NEG, Urine Nitrite NEG, Urine Bilirubin NEG, Urine Urobilinogen 0.2, Ur Leukocyte Esterase SMALL H, Ur Microscopic SEDIMENT EXAMINED, Urine WBC 3-5 H, Ur Epithelial Cells FEW, Urine Bacteria FEW H, Urine Hemoglobin NEG, Urine Glucose NEG Assessment/Plan Assessment: Shruthi is 62-year-old female with no significant PMH who presented after syncopal episode. Reportedly patient had multiple presyncopal attacks. cafeteria monitor showed bradycardia at 31 reading, continue to be average of 50s bpm. No signs of heart block. History of negative Lyme titer, no history of hiking or outdoor activities. She is hemodynamically stable. ACS was ruled out with serial EKG and troponin. TSH and electrolytes WNL. No sign of infection, CXR negative for acute pathology. Plan #Symptomatic bradycardia. Patient is n.p.o. from midnight for pacemaker placement this morning. Dr. Goins cardiothoracic surgeon was consulted. Procedure will be around 10 AM this morning. Despite the fact that there is no significant bradycardia was recorded in playground monitor (lowest 52 for the last 24 hours) but given the fact of multiple presyncopal attacks per patient and family history of sinus sick syndrome. Patient is very urge for the pacemaker to be placed. NPO FC DVT PPx with ALPS Problem List: 1. Symptomatic sinus bradycardia 2. Syncope Pain Ratin Pain Location: n/a Pain Goal: Pain 4 or less Pain Plan: see medication Tomorrow's Labs & Rationales: CBC, BMP Joanie Law 04/30/18 0944: Attending MD Review Statement Attending Statement Attending MD Statement: examined this patient, discuss w/resident/PA/SENIOR FIRE PROTECTION ENGINEER, agreed w/resident/PA/SENIOR FIRE PROTECTION ENGINEER, discussed with family, reviewed EMR data (avail), discussed with nursing, discussed with case mgmt, reviewed images, amended to note Attending Assessment/Plan: 62 o/f with syncope and sinus bradycardia is here in telemetry, no chest pain, no shortness of breath, no further symptoms. Patient overnight bradycardia with HR 40-50s. Avoid b blockers. Cardiology/CTVS (Dr Goins aware) recommend pacemaker for multiple/recurrent syncope episodes. NPO for planned procedure today. Follow cardiology for dc planning.
--- NOTE | 2018-04-30 11:56 | RADIOLOGY REPORT ---
EXAMINATION: CHEST 1 VIEW CLINICAL INFORMATION: Pacer placement. COMPARISON: 04/28/2018. TECHNIQUE: An AP view of the chest is provided. FINDINGS: The cardiac silhouette is not enlarged. Pacer leads are present overlying the right atrium and right ventricle. The mediastinal and hilar contours are unremarkable. There are neither pleural effusions nor pneumothoraces. There are no consolidations. The osseous structures are unremarkable. IMPRESSION: No evidence for acute disease. Pacer leads in place overlying the right atrium and right ventricle.
--- NOTE | 2018-04-30 12:46 | PN- Cardiology ---
Subjective Subjective: stable. Continues to have episodes of sinus bradycardia but no further symptoms. Situation discussed in detail with the patient today Objective Vital Signs and I&Os Vital Signs Date Time Temp Pulse Resp B/P B/P Pulse O2 O2 Flow FiO2 Mean Ox Delivery Rate 04/30 0646 98.1 62 20 106/60 93 Room Air 04/29 2203 98.3 56 20 108/76 94 06/ 1425 98.0 58 18 118/70 97 Room Air Intake & Output 04/30 1600 04/30 0800 04/30 0000 04/29 1600 04/29 0800 04/29 0000 Intake Total 100 100 400 440 440 Output Total 600 Balance 100 100 -200 440 440 Intake, Oral 100 100 400 440 440 Output, Urine 600 Patient 147 lb 150 lb Weight Current Medications: Current Medications Sig/Dashawn Start time Last Medication Dose Route Stop Time Status Admin Acetaminophen 650 MG Q8P PRN 04/28 1045 AC 04/28 PO 1254 Acetaminophen 325 MG Q6P PRN 04/28 1045 AC PO Atropine Sulfate 0.5 MG ONCE PRN 04/28 1045 AC IV Cefazolin Sodium 2 GM IQ8 04/30 1600 AC N/A 1 UNIT IV 05/01 0029 Tramadol HCl 50 MG Q4P PRN 04/30 1245 AC PO Results Last 48 Hrs of Labs/Mics: Laboratory Tests 04/29/18 1300: Urine Color YEL, Urine Clarity CLEAR, Urine pH 6.5, Ur Specific [place] 1.010, Urine Protein NEG, Urine Ketones NEG, Urine Nitrite NEG, Urine Bilirubin NEG, Urine Urobilinogen 0.2, Ur Leukocyte Esterase SMALL H, Ur Microscopic SEDIMENT EXAMINED, Urine WBC 3-5 H, Ur Epithelial Cells FEW, Urine Bacteria FEW H, Urine Hemoglobin NEG, Urine Glucose NEG 04/29/18 0620: Anion Gap 8, Estimated GFR > 60, BUN/Creatinine Ratio 24.3, CBC w Diff NO MAN DIFF REQ, RBC 4.13 L, MCV 91.8, MCH 31.4 H, MCHC 34.2, RDW 13.5, MPV 10.6 H, Gran % 57.8, Lymphocytes % 31.7, Monocytes % 8.3, Eosinophils % 1.4, Basophils % 0.8, Absolute Granulocytes 2.2, Absolute Lymphocytes 1.2, Absolute Monocytes 0.3 , Absolute Eosinophils 0.1, Absolute Basophils 0 04/28/18 1310: Troponin I < 0.01 Assessment/Plan Assessment/Plan Assessment: 1. Sinus bradycardia 2. Syncope, possibly secondary to bradycardia 3. Multiple episodes of lightheadedness 4. Structurally normal heart on echocardiogram Plan: -Continue to monitor on telemetry --the patient is scheduled for permanent pacemaker implantation today. -I had an extended discussion about the patient situation with her. For now, it is not totally clear that the pacemaker will completely improve her symptoms, however, in view of the documented bradycardia associated with symptoms, I believe it is safer for her to have a pacemaker implanted. It is unfortunate that her blood pressure was not checked at the time of the episodes. -out of bed with ambulation post procedure as per Dr. Goins -discharge planning Continue telemetry? Yes
[2018-04-30 13:29] VITALS: BP 120/60
--- NOTE | 2018-04-30 14:38 | Cons- Thoracic Surgery ---
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 She had an episode prior to work this morning where she was feeling dizzy while drinking her coffee. The next thing she was aware of was waking up with her head on the table in her coffee spilled. She came into work and had continued feelings of lightheadedness and presyncopal type symptoms. She was sent to the emergency room for evaluation and while in the emergency room she had another episode. During that episode the emergency room clinicians noticed that her heart rate was in the low 30s. She has been admitted to the hospital and is now being referred for consideration for pacemaker placement. Allergies/Medications Allergies: Coded Allergies: oxycodone (internal itch 05/24/17) Home Med List: Calcium Carbonate/Vitamin D3 (Os-Sean 500+D3 Caplet) 500 MG-200 TABLET 1 TAB PO DAILY VITAMIN SUPPORT (Reported) Multivitamin (Daily Value) 1 EACH TABLET 1 TAB PO DAILY VITAMIN SUPPORT ( Reported) Current Medications: Current Medications Sig/Dashawn Start time Last Medication Dose Route Stop Time Status Admin Acetaminophen 650 MG Q8P PRN 04/28 1045 AC / PO 1254 Acetaminophen 325 MG Q6P PRN / 1045 AC PO Atropine Sulfate 0.5 MG ONCE PRN 04/28 1045 AC IV Cefazolin Sodium 2 GM IQ8 04/30 1600 AC N/A 1 UNIT IV 05/01 0029 Tramadol HCl 50 MG Q4P PRN 04/30 1245 AC PO Past History Medical History Blood Transfusion Hx: No Neurological: NONE EENT: NONE Cardiovascular: pleurisy Respiratory: NONE Gastrointestinal: NONE Hepatic: NONE Renal: NONE Musculoskeletal: NONE Psychiatric: NONE Endocrine: NONE Blood Disorders: NONE Cancer(s): NONE BOOKING POLICE OFFICER/Reproductive: NONE Surgical History Pertinent Surgical History: non-contributory Family History Relations & Conditions If Any: GRANDMOTHER Pacemaker HALF-SISTER Pacemaker Psychosocial History Where Do You Live? Home Services at Home: None Smoking Status: Never Smoked ETOH Use: former use Illicit Drug Use: denies illicit drug use Functional Ability ADLs Independent: dressing, eating, toileting, bathing. Ambulation: independent IADLs Independent: shopping, housework, finances, food prep, telephone, transportation , medication admin. Employment History Employment: OR nurse Review of Systems Review of Systems: She has had multiple episodes similar to this in the past. There was one remote Bry in the last few months when she met with cardiology. Holter monitor did not show anything of any concern. She has currently had some weight loss because of the medical weight loss program and the components of that have been reviewed by the medical service and is not felt that they would in any way contribute to her bradycardia. She has had no chest pain and no respiratory symptoms. There have been no fevers night sweats or chills. The rest of the 12 point review of systems is on her Exam & Diagnostic Data Vital Signs and I&O Vital Signs Date Time Temp Pulse Resp B/P B/P Pulse O2 O2 Flow FiO2 Mean Ox Delivery Rate 04/30 1329 97.8 60 20 120/60 94 04/30 0646 98.1 62 20 106/60 93 Room Air 04/29 2203 98.3 56 20 108/76 94 Intake & Output 04/30 1600 /06 0800 /06 0000 06/05 1600 06/05 0800 06/05 0000 Intake Total 100 100 400 440 440 Output Total 600 Balance 100 100 -200 440 440 Intake, Oral 100 100 400 440 440 Output, Urine 600 Patient 147 lb 150 lb Weight Physical Exam: On physical examination she appears well. Her skin is warm and well perfused no suspicious lesions noted. The sclerae are anicteric and mucous membranes are moist. There is no cervical or subclavicular lymphadenopathy. Her breath sounds are clear and full bilaterally with no wheezes rhonchi noted. The cardiac exam shows a regular rhythm and rate no murmurs or sounds. The abdomen is soft and nontender with no masses. The periphery shows no cyanosis clubbing or edema. Her neurologic exam is grossly normal motor function. 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 I have spoken directly to her typewriters functional tester Dr. Swanson. There is clearly an indication for pacemaker placement here with sick sinus syndrome and symptomatic bradycardia. His concern is that there may be a vasomotor component associated with and without tilt table testing or other process we cannot confirm that. In any event a pacemaker is clearly indicated given the sequence of events that were witnessed in the emergency room along with her reliability and symptom reporting. It was explained to her by her typewriters functional tester that the pacemaker may not prevent further episodes like this and if they were were to happen again she would require more formal electrophysiologic testing. I explained the risks and benefits of pacemaker placement to her. She is well aware of the procedure as she has been involved with them with me in the operating room. I explained usual risk of bleeding and infection along with the risk of pneumothorax and cardiac perforation. She understands and agrees and will proceed tomorrow morning with a dual-chamber MRI compatible pacemaker. Consult Acknowledgment - Thank you for your consult request.
--- NOTE | 2018-04-30 14:42 | Operative Report ---
Operative/Inv Procedure Report Surgery Date: 04/30/18 Name of Procedure: MRI compatible dual-chamber pacemaker Pre-Operative Diagnosis: Symptomatic bradycardia with sick sinus syndrome Post-Operative Diagnosis: Same Estimated Blood Loss: scant Surgeon/Metrology Technician: Arjun Goins MD Anesthesia: local monitored anesthesi Operative/Procedure Note Note: After placement of monitoring lines the patient's left shoulder and chest were prepped and draped in a sterile fashion. 1% lidocaine was used local anesthetic. Incision was made in the deltopectoral groove and carried down to prepectoralis fascia. There was a fairly large cephalic vein that was dissected free and encircled with silk ties. Small venotomy was made and a guidewire was passed directly into the right atrium under fluoroscopic guidance. A right ventricular lead Medtronic model # [id number] was then directly advanced into the pulmonary outflow tract under fluoroscopic guidance. It was withdrawn into the right ventricular cavity and positioned at the apex. R waves were measured at 4-5 mV. The pacing threshold was 0.4 V. A 7 [place] dilator was then passed over the guidewire and a Medtronic preforms atrial lead model #[id number] was then positioned in the right atrial appendage. P waves were measured 4 mV. The pacing threshold was 0.4 V. The leads were tied to the cephalic vein which was then occluded with clips and a silk tie. The leads were then secured to the prepectoralis fascia with Ethibond sutures. Pacemaker pocket was fashioned with electrocautery. The leads were then connected to a Medtronic MRI compatible dual-chamber pacemaker. The pocket was irrigated with antibiotic irrigation. The wound was closed in layers with deep Vicryl suture followed by running Vicryl subcuticular suture. Patient tolerated the procedure well and was brought to recovery room awake in stable condition. CC: Kobe Swanson MD
--- NOTE | 2018-04-30 15:38 | RADIOLOGY REPORT ---
EXAMINATION:\H\ \N\XR CHEST CLINICAL INFORMATION: Dual chamber pacemaker insertion in OR. COMPARISON: Preprocedural chest x-ray 04/28/2018. TECHNIQUE: A single intraoperative view of the left lower chest was obtained during the procedure. FINDINGS: The study partially demonstrates 2 leads from a pacemaker; the pacemaker generator is partially included on the available image. The heart and left lower lung appear unremarkable. Fluoroscopy time: 3 minutes and 56 seconds. Number of images:1. IMPRESSION: 1. Single intraprocedural image during pacemaker insertion.
[2018-04-30 22:00] VITALS: BP 112/72
[2018-05-01 06:43] VITALS: BP 100/70
[2018-05-01] MEDS ORDERED: NAPROXEN500 M2 PO (10:20)
--- NOTE | 2018-05-01 10:22 | Patient Discharge Instructions ---
Discharge Instructions General Discharge Information You were seen/treated for: Bradycardia Special Instructions: -Please take naproxen after meals -Please follow-up with your primary care physician within 1 week after discharge -Please follow-up with Dr. Swanson cardiology within 1 week after discharge -Please follow-up with Dr. Goins within 1 week after discharge -Please avoid any vigorous movement of upper extremity for a month, no weight lifting or golf playing for a month Acute Coronary Syndrome Inclusion Criteria At DC or during hospital stay patient has or had the following: ACS DIAGNOSIS No Discharge Core Measures Meds if any: Prescribed or Continued at Discharge Meds if any: NOT Prescribed or Continued at Discharge Congestive Heart Failure Inclusion Criteria At DC or during hospital stay patient has or had the following: CHF DIAGNOSIS No Discharge Core Measures Meds if any: Prescribed or Continued at Discharge Meds if any: NOT Prescribed or Continued at Discharge Cerebrovascular accident Inclusion Criteria At DC or during hospital stay patient has or had the following: CVA/TIA Diagnosis No Discharge Core Measures Meds if any: Prescribed or Continued at Discharge Meds if any: NOT Prescribed or Continued at Discharge Venous thromboembolism Inclusion Criteria VTE Diagnosis Yes VTE Type NONE VTE Confirmed by (Test) NONE Discharge Core Measures - Per Current guidelines, there needs to be overlap - treatment for the first 5 days of Warfarin therapy. - If discharged on Warfarin prior to 5 days of - overlap therapy, the patient will need to be - assessed for post discharge needs including - *Post discharge parental anticoagulation - *Warfarin and/or parental anticoagulation education - *Follow up date to check INR post discharge At least 5 days overlap therapy as Inpatient Yes Meds if any: Prescribed or Continued at Discharge Note: Overlap Therapy is Warfarin and Anticoagulant Meds if any: NOT Prescribed or Continued at Discharge
--- NOTE | 2018-05-01 10:34 | PN- Cardiology ---
Subjective Subjective: The patient is doing well status post permanent pacemaker placement. No further cardiac symptoms. No chest pain. No palpitations. No lightheadedness or dizziness. No nausea or vomiting. Objective Vital Signs and I&Os Vital Signs Date Time Temp Pulse Resp B/P B/P Pulse O2 O2 Flow FiO2 Mean Ox Delivery Rate 05/01 0800 Room Air 05/01 0643 98.1 64 18 100/70 95 Room Air 04/30 2200 98.1 64 22 112/72 95 / 1329 97.8 60 20 120/60 94 Intake & Output 05/01 1600 05/01 0800 05/01 0000 04/30 1600 04/30 0800 04/30 0000 Intake Total 220 120 400 100 100 Output Total 500 Balance 220 120 -100 100 100 Intake, IV 100 Intake, Oral 120 120 400 100 100 Output, Urine 500 Patient 154 lb 147 lb Weight Physical Exam: Gen: NAD HEENT: normal Lungs: clear to auscultation, normal resp. effort Heart: RRR, S1, S2, no murmurs Abdomen: Soft, nontender, no masses Extremities: No clubbing, cyanosis, or edema. Neuro: Alert and oriented x 3, cranial nerves intact Current Medications: Current Medications Sig/Dashawn Start time Last Medication Dose Route Stop Time Status Admin Acetaminophen 650 MG Q8P PRN 04/28 1045 DC 04/28 PO 1254 Acetaminophen 325 MG Q6P PRN 04/28 1045 AC PO Atropine Sulfate 0.5 MG ONCE PRN 04/28 1045 DC IV Cefazolin Sodium 2 GM IQ8 04/30 1600 DC 04/30 N/A 1 UNIT IV 05/01 0029 2255 Hydromorphone HCl 2 MG Q6P PRN 04/30 1530 AC PO Hydromorphone HCl 2 MG .STK-MED ONE 04/30 1144 DC IM 04/30 1145 Ibuprofen 600 MG Q6P PRN 04/30 1530 AC 05/01 PO 0531 Tramadol HCl 50 MG Q4P PRN 04/30 1245 DC PO Results Last 48 Hrs of Labs/Mics: Laboratory Tests 04/29/18 1300: Urine Color YEL, Urine Clarity CLEAR, Urine pH 6.5, Ur Specific [place] 1.010, Urine Protein NEG, Urine Ketones NEG, Urine Nitrite NEG, Urine Bilirubin NEG, Urine Urobilinogen 0.2, Ur Leukocyte Esterase SMALL H, Ur Microscopic SEDIMENT EXAMINED, Urine WBC 3-5 H, Ur Epithelial Cells FEW, Urine Bacteria FEW H, Urine Hemoglobin NEG, Urine Glucose NEG Recent Imaging Studies: Chest x-ray: No evidence for acute disease. Pacer leads in place overlying the right atrium and right ventricle. Assessment/Plan Assessment/Plan Assessment: 1. Sinus bradycardia heart 2. Syncope, likely secondary to bradycardia 3. Recurrent lightheadedness and presyncope 4. Status post permanent pacemaker placement Plan: * Continue current cardiac medications per * Follow up in the office with Dr. Swanson in 1 week Continue telemetry? No
--- NOTE | 2018-05-01 12:50 | PN- Housestaff ---
Subjective Follow-up For: Symptomatic bradycardia Tele-Events Since Last Visit: Paced rhythm at 59 and 16 Normal sinus rhythm with maximum heart rate 81 Subjective: Patient was seen and examined this morning, no overnight events reported by the patient or the nurses. No acute distress, vital signs are stable. Status post op day 1 for pacemaker placement. Plan for discharge after patient cleared by cardiothoracic surgery. Review of Systems Constitutional: Reports: see HPI. Objective Last 24 Hrs of Vital Signs/I&O Vital Signs Date Time Temp Pulse Resp B/P B/P Pulse O2 O2 Flow FiO2 Mean Ox Delivery Rate 05/01 0800 Room Air 05/01 0643 98.1 64 18 100/70 95 Room Air 04/30 2200 98.1 64 22 112/72 95 Intake & Output 05/01 1600 05/01 0800 05/01 0000 Intake Total 220 120 Output Total Balance 220 120 Intake, IV 100 Intake, Oral 120 120 Patient 69.91 kg Weight Physical Exam General Appearance: Alert, Oriented X3, Cooperative, No Acute Distress Skin: No Rashes, No Breakdown, No Significant Lesion Skin Temp/Moisture Exam: Warm/Dry HEENT: Atraumatic, PERRLA, EOMI, Mucous Membr. moist/pink Neck: Supple Cardiovascular: Regular Rate, Normal S1, Normal S2, No Murmurs Lungs: Clear to Auscultation, Normal Air Movement Abdomen: Normal Bowel Sounds, Soft, No Tenderness Neurological: Normal Gait, Normal Speech, Strength at 5/5 X4 Ext, Normal Tone, Sensation Intact, Cranial Nerves 3-12 NL, Reflexes 2+ Extremities: No Clubbing, No Cyanosis, No Edema, Normal Pulses, No Tenderness/ Swelling Assessment/Plan Assessment: Shruthi is 62-year-old female with no significant PMH who presented after syncopal episode. Reportedly patient had multiple presyncopal attacks. urgent care nurse practitioner showed bradycardia at 31 reading, continue to be average of 50s bpm. No signs of heart block. History of negative Lyme titer, no history of hiking or outdoor activities. She is hemodynamically stable. ACS was ruled out with serial EKG and troponin. TSH and electrolytes WNL. No sign of infection, CXR negative for acute pathology. #Symptomatic bradycardia. Patient is POD#1 pacemaker placement. Patient is controlled with Motrin. Patient was cleared by cardiology and cardiac thoracic surgery for discharge to follow-up after discharge in 1 week. Patient was advised to avoid any vigorous movement of her upper extremity, weightlifting and golf playing for at least a month. Pacemaker interrogation was done this morning. FC DVT PPx with ALPS Problem List: 1. Symptomatic sinus bradycardia Pain Ratin Pain Location: left shoulder Pain Goal: Pain 4 or less Pain Plan: see medication Tomorrow's Labs & Rationales: n/a
--- NOTE | 2018-05-01 13:59 | Discharge Summary ---
Visit Information Visit Dates Admission Date: 04/28/18 Discharge Date: 05/01/18 Hospital Course Course Attending Physician: Joanie Law MD Primary Care Physician: Adalberto RODRIGUEZ,Brisa Hospital Course: Ms. Hawkins is a 62-year-old female with no significant past medical history who presented to ED with chief complaint of brief syncopal attack and history of multiple presyncopal attacks in the past. Patient was found to be bradycardic with a oscar 30 in the ED associated with lightheadedness and dizziness. Patient was admitted to telemetry floor for continuous cardiac monitoring, was found to be bradycardic with average of 50 bpm. Cardiology consultation was obtained. Orthostatic management is negative. Tropes and EKG were negative 2, electrolytes stable, normal TSH level. 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 Decision was made for pacemaker placement. Cardiothoracic surgery was obtained and patient had a pacemaker placed on 04/30/18 with no events. Patient tolerated the procedure well, pain was controlled with Motrin and patient was cleared for discharge. Patient was given naproxen 500 mg twice daily for 5 days for pain. She will follow with cardiology Dr. Swanson and cardiothoracic surgeon Dr. Goins within 1 week after discharge. Patient was educated about avoiding vigorous movement of upper extremity, lifting heavy objects, sports like golfing for about a month. Allergies: Coded Allergies: oxycodone (internal itch 05/24/17) Disposition Summary Disposition Principal Diagnosis: Symptomatic bradycardia Additional Diagnosis: None Discharge Disposition: home or self care Discharge Instructions General Discharge Information Code Status: Full Code Patient's Diet: Regular Patient's Activity: Patient was advised to avoid any vigorous movement of her upper extremity, weightlifting and golf playing for at least a month. Follow-Up Instructions/Appts: -Please take naproxen after meals -Please follow-up with your primary care physician within 1 week after discharge -Please follow-up with Dr. Swanson cardiology within 1 week after discharge -Please follow-up with Dr. Goins within 1 week after discharge -Please avoid any vigorous movement of upper extremity for a month, no weight lifting sports like golf for a month Medications at Discharge Discharge Medications: Continue taking these medications: Multivitamin (Daily Value) 1 EACH TABLET 1 Tablet ORAL DAILY Comments: NOT GIVEN IN HOSPITAL Calcium Carbonate/Vitamin D3 (Os-Sean 500+D3 Caplet) 500 MG-200 TABLET 1 Tablet ORAL DAILY Comments: NOT GIVEN IN HOSPITAL Start taking the following new medications: Naproxen (Naproxen) 500 MG TABLET 1 Tablet ORAL TWICE DAILY Qty = 10 No Refills Comments: NOT GIVEN IN HOSPITAL Copies To: Adalberto RODRIGUEZ,Brisa; Kiki RODRIGUEZ,Kobe Morgan; Buster Palmer MD,Arjun Castillo
== END 2018-05-01 11:11 | DRG 244 ==
LOC: ERH 06:47 → ERHI 09:27 → 1NO 09:27 → ENRESERV 09:56 → ENTRNSPT 10:55 → EDTRNSPTSTS 10:56 → EDTRNSPT 10:56 → 1NO 11:05 → CMPTRNSPT 11:48 → 1NO 14:53 → ENTRNSPT 04-30 12:18 → EDTRNSPTSTS 04-30 12:26 → EDTRNSPT 04-30 12:26 → CMPTRNSPT 04-30 12:58 → ENPENDDIS 05-01 10:22 → ENTRNSPT 05-01 11:01 → EDTRNSPTSTS 05-01 11:09 → 1NO 05-01 11:11 → CMPTRNSPT 05-01 11:22
PROVIDERS: Internal Medicine Cardiovascular Disease; Pediatrics
PROC: 0JH606Z Insertion of Pacemaker, Dual Chamber into Chest Subcutaneous Tissue and Fascia, Open Approach (ICD-10-PCS; principal; 2018-04-30)
PROC: 02H63JZ Insertion of Pacemaker Lead into Right Atrium, Percutaneous Approach (ICD-10-PCS; principal; 2018-04-30)
DX: I49.5 Sick sinus syndrome (principal); Z86.718 Personal history of other venous thrombosis and embolism; Z88.5 Allergy status to narcotic agent
CPT/HCPCS: 1NP; 36415; 36592; 71045; 81001; 82436; 93005; 93010; 93306; 96361; 96374; 99291; C1785; C1898; J0461; J0690; J2001; J2405